=== PATIENT | female | born 1935 | race Caucasian/White ===

== ENCOUNTER 2021-05-20 17:54 | Inpatient (IN) | payer OTHER ==
[~2021-05-20] VITALS: Ht 167.6 cm; Wt 59.0 kg
[~2021-05-20 17:54] MED LIST: AMOXICILLIN500 M1 PO; AMOXIL 875 MG875 M1 PO; ASPIRIN325 PO; ATORVASTATIN CA20 MG PO; CIPRO500 MG PO; COLACE100 MG PO; DOCUSATE SODIU100 MG PO; EXCEDRIN CAPLE1 EACH PO; FLAGYL500 MG PO; IRON325 PO; LOTENSIN20 MG PO; OMEPRAZOLE40 MG PO; TRAMADOL 50 MG50 MG PO
[2021-05-20 17:55] VITALS: BP 175/114
[2021-05-20 20:11] LABS: ABSOLUTE LYMPHOCYTES 0.6 thou/uL (0.8-5.3); ABSOLUTE MONOCYTES 0.5 thou/uL (0.0-1.2); ABSOLUTE NEUTROPHILS 4.7 thou/uL (1.6-8.1); BASOPHILS 0.2 %; HEMATOCRIT 34.1 % (37.0-47.0); HEMOGLOBIN 10.7 gm/dL (12.0-15.0); LYMPHOCYTES 9.9 %; MCH 25.6 pg (26.0-34.0); MCHC 31.4 g/dL (28.0-37.0); MCV 81.4 fL (80.0-100.0); MONOCYTES 8.4 %; MPV 9.2 fl. (7.2-11.1); NUCLEATED RBCS 0 /100WBC; PLATELET COUNT* 201 thou/uL (150-400); POLYS 81.5 %; RBC 4.18 mil/uL (4.20-5.00); RDW-CV 18.1 % (10.5-14.5); WBC 5.8 thou/uL (4.0-11.0)
[2021-05-20 20:22] LABS: CALCIUM 8.8 mg/dL (8.5-10.1); CREATININE 0.8 mg/dL (0.6-1.3); POTASSIUM 3.2 mmol/L (3.5-5.1)
[2021-05-20 20:26] LABS: ALBUMIN 3.4 g/dL (3.4-5.0); TOTAL BILIRUBIN 0.4 mg/dL (<0.1-1.0); TOTAL PROTEIN 7.3 g/dL (6.4-8.2)
[2021-05-21 02:00] VITALS: BP 143/56
[2021-05-21 03:49] VITALS: BP 143/56
[2021-05-21 07:30] VITALS: BP 139/56
--- NOTE | 2021-05-21 09:33 | EKG ---
[place] [address] ELECTROCARDIOGRAM REPORT Name: MATTHIEU BISWAS V Room: [place] [address] ADM IN ..#: [id number] Admission: 05/20/21 Attend Phys: Anju Esquivel, Discharge: Date of : 33 Date of Service: 05/20/211948 Report #: [id number] THIS REPORT FOR: //name// [facility] ED Test Date: 2021-05-20 Test Time: 19:49:58 Pat Name: MATTHIEU BISWAS Department: Room: [facility] Gender: F Senior Research Executive: YURIDIA : 1935 Requested By: Chanda Wheeler Order Number: [id number] MD: Dwayne Brunson Measurements Intervals [place] Rate: 47 P: 67 ND: 97 QRS: 53 QRSD: 94 T: 94 QT: 424 QTc: 375 Interpretive Statements Sinus bradycardia Short ND interval Left ventricular hypertrophy Nonspecific T abnrm, anterolateral leads Compared to ECG 05/30/2016 08:57:26 Short ND interval now present Sinus rhythm no longer present Electronically Signed On 05-21-2021 9:32:59 CDT by Dwayne Brunson [email or web address] <ELECTRONICALLY SIGNED> By: Maida Brunson MD, [facility] 05/21/21931 48 48 Maida Brunson MD, [facility] /EPI
[2021-05-21 12:30] VITALS: BP 142/72
--- NOTE | 2021-05-21 16:22 | NUR ---
cm s/w pt's d/t pt being on covid isolation precautions. pt is active, "she planted a huge garden this yr." pt is independent with adls. pt has hh with a knee sx about "ten years a/g." pt has no hx with snf. pt lives alone but her dtr is her neighbor and checks on her "several times throughout the day." pt uses no dmes. cm to cont to follow.
[2021-05-21 16:45] VITALS: BP 154/68
== END 2021-05-21 16:55 | disposition left against medical advice (07) | DRG 179 ==
LOC: M.ERS 17:54 → M.TBA-ER 22:07
PROVIDERS: Nurse Practitioner Family; ADMIT Internal Medicine; ATTEND Internal Medicine
DX: U07.1 COVID-19 (principal); R00.1 Bradycardia, unspecified; M19.90 Unspecified osteoarthritis, unspecified site; M81.0 Age-related osteoporosis without current pathological fracture; Z96.653 Presence of artificial knee joint, bilateral; I10 Essential (primary) hypertension; K21.9 Gastro-esophageal reflux disease without esophagitis; D64.9 Anemia, unspecified; E87.6 Hypokalemia; Z53.29 Procedure and treatment not carried out because of patient's decision for other reasons; Z90.710 Acquired absence of both cervix and uterus; Z79.899 Other long term (current) drug therapy

== ENCOUNTER 2021-09-04 22:17 | Emergency (ER) | payer OTHER ==
[~2021-09-04] VITALS: Ht 165.1 cm; Wt 52.4 kg
[2021-09-04] MEDS ORDERED: CARVEDILOL12.5 MG PO ×2 (22:37→22:38)
[2021-09-04] MEDS ORDERED: TRAMADOL 50 MG50 MG PO (22:39)
[2021-09-04 23:26] LABS: ABSOLUTE EOSINOPHILS 0.2 thou/uL (0.0-0.7); ABSOLUTE LYMPHOCYTES 1.3 thou/uL (0.8-5.3); ABSOLUTE MONOCYTES 0.8 thou/uL (0.0-1.2); ABSOLUTE NEUTROPHILS 6.1 thou/uL (1.6-8.1); BASOPHILS 0.5 %; EOSINOPHILS 2.1 %; HEMATOCRIT 26.5 % (37.0-47.0); HEMOGLOBIN 8.1 gm/dL (12.0-15.0); LYMPHOCYTES 15.2 %; MCH 24.3 pg (26.0-34.0); MCHC 30.6 g/dL (28.0-37.0); MCV 79.5 fL (80.0-100.0); MONOCYTES 9.3 %; MPV 8.2 fl. (7.2-11.1); NUCLEATED RBCS 0 /100WBC; PLATELET COUNT* 286 thou/uL (150-400); POLYS 72.9 %; RBC 3.34 mil/uL (4.20-5.00); RDW-CV 17.9 % (10.5-14.5); WBC 8.4 thou/uL (4.0-11.0)
[2021-09-04 23:30] LABS: CALCIUM 9.2 mg/dL (8.5-10.1); CREATININE 0.8 mg/dL (0.6-1.3); POTASSIUM 3.6 mmol/L (3.5-5.1)
[2021-09-04 23:35] LABS: ALBUMIN 3.2 g/dL (3.4-5.0); TOTAL BILIRUBIN 0.2 mg/dL (<0.1-1.0); TOTAL PROTEIN 6.5 g/dL (6.4-8.2)
[2021-09-05 02:30] VITALS: BP 158/89
--- NOTE | 2021-09-05 11:10 | EKG ---
[place] [address] ELECTROCARDIOGRAM REPORT Name: MATTHIEU BISWAS V Room: [facility]#: [id number] Admission: 09/04/21 Attend Phys: Discharge: 09/05/21 Date of : 33 Date of Service: 09/04/212237 Report #: [id number] THIS REPORT FOR: //name// [facility] ED Test Date: 2021-09-04 Test Time: 22:38:16 Pat Name: MATTHIEU BISWAS Department: Room: Gender: Note Taker: : 1935 Requested By: Adela West Order Number: [id number] MD: Larry Casey Measurements Intervals [place] Rate: 64 P: 76 [place]: 152 QRS: 72 QRSD: 82 T: 73 QT: 398 QTc: 411 Interpretive Statements Sinus rhythm LVH with secondary repolarization abnormality Compared to ECG 05/20/2021 19:49:58 Sinus bradycardia no longer present Electronically Signed On 09-05-2021 11:10:35 [employer] by Larry Casey [email or web address] <ELECTRONICALLY SIGNED> By: Larry Casey MD, FACC 09/05/21 1110 37 37 Larry Casey MD, [facility] /EPI
== END 2021-09-05 02:30 | disposition home or self-care (01) ==
LOC: M.ERS 22:17
PROVIDERS: Emergency Medicine
DX: R07.89 Other chest pain (principal); M19.90 Unspecified osteoarthritis, unspecified site; I10 Essential (primary) hypertension; K21.9 Gastro-esophageal reflux disease without esophagitis; Z79.899 Other long term (current) drug therapy; Z90.710 Acquired absence of both cervix and uterus; Z90.49 Acquired absence of other specified parts of digestive tract; Z88.1 Allergy status to other antibiotic agents